=== PATIENT | female | born 1960 | race Caucasian/White ===

== ENCOUNTER 2017-08-27 19:44 | Inpatient (IN) | payer OTHER ==
[~2017-08-27] VITALS: Ht 162.6 cm; Wt 79.8 kg
[~2017-08-27 19:44] MED LIST: ANUSOL HC,ANUCO25 MG PR; BENTYL10 MG PO; COLACE100 MG PO; CREON 241 CAPSULE PO; Cholesterol Med PO; FENOFIBRATE160 M1 PO; FLAGYL500 MG PO; FLORASTOR250 MG PO; HYDROCHLOROTHIA25 MG PO; HYDROCHLOROTHIAZIDE; LISINOPRIL30 MG; METOPROLOL SUCC25 MG PO; NABUMETONE750 MG PO; PERCOCET 5/31 TABLET PO; PROTONIX40 MG PO; SIMVASTATIN 40 MG TA; TYLENOL EXTRA500 MG PO; ZANAFLEX4 M1 PO; ZESTRIL40 MG PO
[2017-08-27 20:27] LABS: HEMATOCRIT 40.4 % (36.0-46.0); HEMOGLOBIN 13.8 G/DL (11.9-15.5); MCH 28.9 PG (29.0-34.0); MCHC 34.2 G/DL (30.0-36.0); MCV 84.5 FL (83-99); PLATELET COUNT 340 K/uL (156-360); RBC DIS.WIDTH-CV 14.4 % (11.8-14.6); RBC DIS.WIDTH-SD 44.3 % (39-53); RED BLOOD COUNT 4.78 M/uL (3.80-5.20); WHITE BLOOD COUNT 14.2 K/uL (4.1-10.2)
[2017-08-27 20:32] LABS: ALBUMIN 4.4 g/dL (3.2-4.8)
[2017-08-27 20:33] LABS: CHLORIDE 102 mEq/L (99-109); POTASSIUM 3.5 mEq/L (3.7-5.4); SODIUM 141 mEq/L (136-147)
[2017-08-27 20:35] LABS: GLUCOSE 102 mg/dL (70-99); TOTAL PROTEIN 7.4 g/dL (6.4-8.3)
[2017-08-27 20:37] LABS: TOTAL BILIRUBIN 0.3 mg/dL (0.0-1.0)
[2017-08-27 20:38] LABS: ALKALINE PHOSPHATASE 70 IU/L (3-129)
[2017-08-27 20:39] LABS: CREATININE 0.7 mg/dL (0.6-1.3); GFR ESTIMATE (CALCULATED) > 59 mL/min/
[2017-08-27 20:40] LABS: AST (GOT) 17 IU/L (2-34); UREA NITROGEN (BUN) 16 mg/dL (9-23)
[2017-08-27 20:42] LABS: ALT (GPT) 20 IU/L (3-49)
[2017-08-27 20:52] LABS: QUANTITATIVE HCG 4.4 MIU/ML
[2017-08-27 23:11] LABS: LIPASE 18 U/L (1.0-51.0)
[2017-08-28 01:22] LABS: APPEARANCE CLEAR ((CLEAR)); BILIRUBIN NEGATIVE; BLOOD NEGATIVE; COLOR STRAW ((YELLOW)); GLUCOSE (STRIP) NEGATIVE; KETONES NEGATIVE; LEUKOCYTES NEGATIVE; NITRITE NEGATIVE; PROTEIN (STRIP) NEGATIVE; SPECIFIC GRAVITY 1.039 (1.000-1.030); UCUL ADDED? NO; UROBILINOGEN 0.2 MG/DL (0.2-1.0)
[2017-08-28 05:59] VITALS: BP 126/70
[2017-08-28] MEDS ORDERED: QUESTRAN PACKET4 GM PO (06:23)
[2017-08-28] MEDS ORDERED: AMLODIPINE BESYL5 MG PO (06:25)
[2017-08-28 07:03] LABS: HEMATOCRIT 34.8 % (36.0-46.0); MCH 27.5 PG (29.0-34.0); MCHC 32.2 G/DL (30.0-36.0); MCV 85.3 FL (83-99); PLATELET COUNT 286 K/uL (156-360); RBC DIS.WIDTH-CV 14.6 % (11.8-14.6); RBC DIS.WIDTH-SD 45.3 % (39-53); RED BLOOD COUNT 4.08 M/uL (3.80-5.20); WHITE BLOOD COUNT 10.2 K/uL (4.1-10.2)
[2017-08-28 07:04] LABS: HEMOGLOBIN 11.2 G/DL (11.9-15.5)
[2017-08-28 08:05] VITALS: BP 127/69
[2017-08-28 11:36] VITALS: BP 133/77
[2017-08-28 16:16] VITALS: BP 147/77
[2017-08-28 19:30] VITALS: BP 154/81
[2017-08-29 00:23] VITALS: BP 147/82
[2017-08-29 06:01] LABS: BASOPHIL (%) 0.8 % (0-1); BASOPHIL COUNT 0.1 K/uL (0-0.1); EOSINOPHIL (%) 2.2 % (0-5); EOSINOPHIL COUNT 0.2 K/uL (0-0.3); HEMATOCRIT 33.1 % (36.0-46.0); HEMOGLOBIN 10.6 G/DL (11.9-15.5); IMMATURE GRANULOCYTE (%) 0.7 % (0.0-0.7); LYMPHOCYTE (%) 25.4 % (15-42); LYMPHOCYTE COUNT 1.9 K/uL (1.0-2.8); MCH 27.7 PG (29.0-34.0); MCV 86.4 FL (83-99); MONOCYTE (%) 6.2 % (3-12); MONOCYTE COUNT 0.5 K/uL (0-0.8); NEUTROPHIL (%) 64.7 % (45-76); NEUTROPHIL COUNT 4.8 K/uL (1.8-6.4); PLATELET COUNT 269 K/uL (156-360); RBC DIS.WIDTH-CV 14.6 % (11.8-14.6); RBC DIS.WIDTH-SD 45.9 % (39-53); RED BLOOD COUNT 3.83 M/uL (3.80-5.20); WHITE BLOOD COUNT 7.4 K/uL (4.1-10.2)
[2017-08-29 06:20] LABS: CHLORIDE 106 MEQ/L (99-109); CREATININE 0.5 MG/DL (0.6-1.3); GFR ESTIMATE (CALCULATED) > 59 mL/min/; GLUCOSE 117 mg/dL (70-99); POTASSIUM 3.3 MEQ/L (3.7-5.4); SODIUM 142 MEQ/L (136-147); UREA NITROGEN (BUN) 5 mg/dL (9-23)
[2017-08-29 08:11] VITALS: BP 155/78
[2017-08-29] MEDS ORDERED: CIPRO500 MG PO (11:34)
[2017-08-29] MEDS ORDERED: FLAGYL500 MG PO (11:34)
[2017-08-29] MEDS ORDERED: FLORASTOR250 MG PO (11:35)
[2017-08-29 11:56] VITALS: BP 141/80
== END 2017-08-29 15:30 | disposition home or self-care (01) | DRG 378 ==
LOC: EME 19:44 → 5EAST 08-28 04:13 → EDOF 08-28 04:13 → ENRESERV 08-28 04:14 → 5EAST 08-28 05:27
PROVIDERS: Internal Medicine; Physician Assistant
DX: K57.33 Diverticulitis of large intestine without perforation or abscess with bleeding (principal); E87.2 Acidosis; K64.9 Unspecified hemorrhoids; R00.0 Tachycardia, unspecified; G89.18 Other acute postprocedural pain; R10.2 Pelvic and perineal pain; I10 Essential (primary) hypertension; E78.5 Hyperlipidemia, unspecified; K21.9 Gastro-esophageal reflux disease without esophagitis; R93.5 Abnormal findings on diagnostic imaging of other abdominal regions, including retroperitoneum; F17.200 Nicotine dependence, unspecified, uncomplicated; Z85.41 Personal history of malignant neoplasm of cervix uteri; Z90.721 Acquired absence of ovaries, unilateral
CPT/HCPCS: 74177; 80048; 80053; 81003; 83605; 83690; 84702; 85025; 85027; 87040; 99281; 99285; J0744; J2405; J7030; S0030